=== PATIENT | female | born 1960 | race Caucasian/White ===

== ENCOUNTER → 2020-06-07 11:44 | Outpatient (CLI) | payer OTHER, SELFPAY ==
[2020-06-07 13:18] LABS: Add Manual Diff / Slide Review NO; Basophils Absolute Auto 100 /uL (0-100); Basophils Percent Auto 1.2 % (0-2); Eosinophils Absolute Auto 100 /uL (0-450); Hematocrit 39.5 % (36-46); Hemoglobin 13.2 g/dL (12.0-16.0); Lymphocytes Absolute Auto 2400 /uL (1100-4500); Lymphocytes Percent Auto 44.6 % (25-40); Mean Corpuscular HGB Conc 33.5 % (30-36); Mean Corpuscular Hemoglobin 28.9 PG (26-34); Mean Corpuscular Volume 86.4 fL (80-100); Monocytes Absolute Auto 400 /uL (0-900); Monocytes Percent Auto 6.8 % (3-14); Neutrophils Absolute Auto 2400 /uL (1500-7000); Neutrophils Percent Auto 45.4 % (50-75); Platelet Count 358 X10^3/uL (150-400); Red Blood Cell Count 4.57 X10^6/uL (4.0-5.2); Red Cell Distribution Width 13.2 % (11.6-14.8); White Blood Cell Count 5.3 X10^3/uL (4.5-11.0)
[2020-06-08 01:12] LABS: BUN Creatinine Ratio 31.7 (6-22); Blood Urea Nitrogen 20 mg/dL (7-17); Calcium 10.4 mg/dL (8.4-10.2); Carbon Dioxide 28 mmol/L (22-32); Chloride 104 mmol/L (98-107); Estimated Glomerular Filt Rate > 60.0 mL/min (>60); Glucose 85 mg/dL (70-100); HEMOLYSIS < 15 (0-50); Potassium 4.8 mmol/L (3.4-5.1); Sodium 140 mmol/L (137-145)
[2020-06-08 02:09] LABS: Hemoglobin A1C% w Est Avg Glu 5.1 % (4.0-6.0)
== END ==
PROVIDERS: PCP Family Medicine; Referring Provider Orthopaedic Surgery Adult Reconstructive Orthopaedic Surgery; Visit Provider Orthopaedic Surgery Adult Reconstructive Orthopaedic Surgery
DX: Z01.818 Encounter for other preprocedural examination (principal); Z01.812 Encounter for preprocedural laboratory examination; R73.9 Hyperglycemia, unspecified
CPT/HCPCS: 36415; 80048; 83036; 85025; 93005

== ENCOUNTER → 2020-07-03 11:40 | Outpatient (CLI) | payer OTHER, SELFPAY ==
[2020-07-03 14:28] LABS: COVID19 -Nasal RAPID Negative (Negative)
== END ==
PROVIDERS: PCP Family Medicine; Visit Provider Student in an Organized Health Care Education/Training Program
DX: Z01.812 Encounter for preprocedural laboratory examination (principal); Z20.822 Contact with and (suspected) exposure to COVID-19
CPT/HCPCS: 87635

== ENCOUNTER 2020-07-05 09:10 | Inpatient (IN) | payer OTHER, SELFPAY ==
[2020-06-28 09:52] VITALS: BMI 30.8
[2020-07-05] VITALS (16 sets, daily range): BP systolic 96–122; BP diastolic 52–72; PULSE 54–92; RESP 10–18; TEMP 36–36.7; O2SAT 93–100; BMI 32.4
--- NOTE | 2020-07-05 | DI.RAD.S_ITS ---
PROCEDURE: XR HIP RT 1V INDICATIONS: RIGHT ANTERIOR HIP TECHNIQUE: 1 intraoperative view(s) of the hip acquired. COMPARISON: [facility], CR, XR PELVIS 1-2V, 07/05/2020, 14:22. FINDINGS: Patient is status post right hip arthroplasty, with hardware components in expected positions. The hip joint appears congruent. The visualized bony structures appear intact. IMPRESSION: Expected intraoperative appearance of the right hip arthroplasty. Dictated by: Guzman Santana M.D. on 07/05/2020 at 14:56 Approved by: Guzman Santana M.D. on 07/05/2020 at 14:57
--- NOTE | 2020-07-05 09:26 | DI.RAD.S_ITS ---
PROCEDURE: XR PELVIS 1-2V INDICATIONS: anterior NAHID TECHNIQUE: 1 view of the lower pelvis acquired. COMPARISON: [facility] [place], CR, XR PELVIS WITH LATERAL HIP RIGHT, 04/11/2020, 15:42. FINDINGS: Bones: Patient is status post right hip arthroplasty, with hardware components in expected positions. The hip joint appears congruent. The visualized bony structures appear intact. Severe left hip joint narrowing redemonstrated. Soft tissues: Overlying postoperative changes are noted. No suspicious soft tissue densities. IMPRESSION: Expected immediate postoperative appearance of right hip arthroplasty. Dictated by: Hans Santos [facility] Interpreted: Ginna Sauer MD on 07/05/2020 at 14:33 Transcribed by: JOB on 07/05/2020 at 14:35 Approved by: Ginna Sauer M.D. on 07/05/2020 at 17:12
[2020-07-05] MEDS: LACTATED RINGERS 1,000 ML 42 ML IV ×2 (10:05→14:24)
[2020-07-05] MEDS: ACETAMINOPHEN 325 MG TABLET 975 MG PO (10:08)
[2020-07-05] MEDS: CELECOXIB 200 MG CAPSULE PO (10:09)
--- NOTE | 2020-07-05 10:10 | SUR.PREOP ---
Right anterior hip cleansed with 2% chlorhexadine wipes.
--- NOTE | 2020-07-05 11:03 | PM.PREOP ---
Pre-operative Note COVID-19 COVID-19 status: Negative Result date/Date tested (Pos, Neg/Pending): 07/03/20 Interval Note History & Physical reviewed/Exam performed by Physician: Yes Changes to H&P: No H&P completed within 30 days and has changed as indicated here:: Plan for right anterior NAHID
[2020-07-05] MEDS: CEFAZOLIN 2 GM/100 ML FROZ.PIGGY IV ×2 (11:42→20:10)
[2020-07-05] MEDS: TRANEXAMIC ACID 1,000 MG VIAL 2000 MG INJ ×2 (11:55→13:30)
[2020-07-05] MEDS: ROPIVACAINE 0.5% PF 5 MG/ML 20ML VIAL 60 ML INJ (12:24)
[2020-07-05] MEDS: SODIUM CHLORIDE IRRIG SOLUTION 250 ML, POVIDONE-IODINE SPONGE STICKS 1 APPLIC IRR (12:24)
[2020-07-05] MEDS: MORPHINE 4 MG/ML INJ INJ (12:25)
[2020-07-05] MEDS: KETOROLAC 30 MG/ML VIAL IV (12:25)
--- NOTE | 2020-07-05 14:07 | P.OP_ITS ---
Operative Date/Time/Diagnoses Date of procedure: 07/05/20 Time of procedure: 14:07 Pre-op diagnosis: right hip OA Post-op diagnosis: same Procedure & Clinicians Procedure: right anterior NAHID Same procedure as scheduled: Yes Indications: Right hip osteoarthritis resistant to further conservative measures Surgeon: Miguel Angel Marcum [employer] Official: Chaitanya Lang Anesthesia Type: General and Spinal Operative Notes Findings: Right hip osteoarthritis with head neck junction osteophytes and [id number] articulation of the weight-bearing portion of the femoral head Closure Type: primary Specimen(s): none sent Prosthetic devices, grafts, tissues, transplants, or devices: Yeh and Nephew 54 mm R3 three-hole cup 1x 25mm screw 2x 15mm screws 54 mm x 36 mm ceramic liner Anthology size 6 high offset femoral component 36+ 0 delta Biolox head Estimated Blood Loss (mL): 500 Procedure in detail: Patient was met in the preoperative holding area where the site and side of surgery were marked by . Informed consent had been reviewed and signed in clinic was also reviewed the preoperative holding area. All last minute questions were answered. Patient was then brought back in the operating room she received a spinal anesthetic she was then placed supine and transferred onto the [place] table. She was induced under general anesthesia. Both feet were well padded and placed in [place] table boots. The right lower extremity then prepped and draped in normal sterile fashion. A surgical time-out was performed verifying site and side of surgery as well as the name of the patient. Incision the skin was made with and 10 blade starting approximately 2 cm distal and 1 cm lateral to the ASIS aiming towards the fibular head. Electrocautery dissection was carried down to the level of tensor fascia. The tensor fascia was then incised. A Meyerding retractor was then placed over the lateral aspect of the rectus and retracted medially and a Cobra was placed over the superior aspect of the femoral neck to retract the tensor laterally. This gave us good exposure to the ascending branch the femoral circumflex vessels these were coagulated using electrocautery. A 2nd Cobra retractor was then placed over the inferior aspect of the femoral neck a bent Hohmann was placed over the anterior aspect of the acetabulum to give us exposure to the capsule. . Capsular fat was removed and inverted T-shaped capsulotomy was performed. The superior and inferior leaflets were tagged with a FiberWire suture in retractors were placed intracapsularly and then made a femoral neck cut with a reciprocating saw based off for preoperative template. A corkscrew was then used to remove the femoral head. The soft tissue sleeve was then introduced and the retractors were placed. The pulvinar was then removed using electrocautery and suction and began reaming with a 42 mm Reamer to medialized. Fluoroscopic imaging was then brought in and began upsizing by reamers by 2. Ending with a 52 mm Reamer at which point I start to get good fit and fill I then selected the 53 mm Reamer reamed this and selected a 54 mm cup. This was inserted on the straight handle director of parks and recreation initial attempts at placement of the cup resulted in the cup not fully seating. The cup was then removed then touch reamed the rim again with the 53 mm Reamer and was able to fully seat the cup a 2nd time. Screws were then placed through the cup. And the ceramic liner was then impacted make sure that it was well seated. Next I turned my attention to the femoral side the femoral elevator hook was placed in the posterior aspect of the femur the foot was then externally rotated to 120? extended to the floor and dducted. Bent Hohmann was placed over the superior aspect of the superior leaflet of the capsulotomy and the capsule was further released off the inner shoulder of the greater trochanter. This was resulted in the soft spot with a large single prong retractors placed over the tip of the greater trochanter and the Meyerding retractor was then placed over the calcar. This gave us good exposure to a femoral neck cut. Began use with using a canal finer followed by a chili pepper broach followed by broaching from a size 1 point up by 1s. And with a size 5 calcar planed off this broach. Trialed with a high offset neck and a 36+ 0 head this had good stability to full external rotation as well as external rotation 90? and extension to the floor. Fluoroscopic imaging was brought in which showed that the operative side was long as well as the stem was undersized. The hip was then dislocated the components were removed and I was able to countersink a 5. Broach and calcar planed off this broach and ultimately upsized by 1 to a size 6 broach a size 6 high offset stem was then placed and the delta Biolox 36+ 0 head was then packed onto the trunnion and reduced a final time. Stability was tested to maximal external rotation which was stable as well as external rotation 90? and extension to the floor. Fluoroscopic imaging was brought in for final x-ray Betadine solution was then placed into the wound allowed to sit for several minutes prior to being lavage with copious normal saline.. Degree soft tissue injection was then performed followed by closure of the capsulotomy using a running Ethibond suture with removal of the tag sutures. The tensor fascia layer was then closed with a running 1. Vicryl followed by running 1. In the fat layer followed by interrupted 2 0 Vicryl in the subcutaneous layer followed by running 3-0 Stratafix Dermabond and Aquacel dressing. Complications: none Post-operative Condition: stable Disposition: PACU Plan for aftercare: WBAT RLE, 24 hours post-op abx, ASA 81mg BID for DVT prophylaxis
[2020-07-05] MEDS: ONDANSETRON 4 MG/2 ML INJ IV ×2 (14:32→21:10)
[2020-07-05] MEDS: OXYCODONE/ACETAMINOPHEN 5/325 TABLET 1 TAB PO (14:32)
--- NOTE | 2020-07-05 15:20 | PC.NURSE ---
1505 - Pt arrived to the floor, awake and alert, reports feeling nauseated. MOSHGIACH reports 1 percocet and zofran given at 1430. Drsg to anterior right hip CDI, SCD's in place. Oriented to room and routine, educated to safety and call light use. Call light in reach, bed alarm on. Report given to RN Masood and Ashley.
[2020-07-05] MEDS: LACTATED RINGERS 1,000 ML 125 ML IV (15:51)
[2020-07-05] MEDS: ONDANSETRON 4 MG ODT PO ×2 (15:52→20:35)
[2020-07-05] MEDS: ASPIRIN EC 81 MG TABLET PO (20:11)
[2020-07-05] MEDS: DOCUSATE 100 MG CAPSULE PO (20:11)
[2020-07-06 00:35] VITALS: BP 101/60; PULSE 67; RESP 16; TEMP 37.1; O2SAT 94
[2020-07-06] MEDS: LACTATED RINGERS 1,000 ML 125 ML IV (00:37)
[2020-07-06 04:00] VITALS: BP 101/57; PULSE 75; RESP 16; TEMP 36.8; O2SAT 94
[2020-07-06] MEDS: CEFAZOLIN 2 GM/100 ML FROZ.PIGGY IV (04:04)
[2020-07-06] MEDS: OXYCODONE IR 5 MG TABLET PO ×2 (04:04→20:30)
[2020-07-06] MEDS: IBUPROFEN 400 MG TABLET PO ×5 (04:04→20:03)
[2020-07-06 06:14] LABS: Hematocrit 29.3 % (36-46); Hemoglobin 9.9 g/dL (12.0-16.0)
[2020-07-06 07:26] VITALS: BP 103/58; PULSE 70; RESP 16; TEMP 36.4; O2SAT 96
--- NOTE | 2020-07-06 07:54 | PM.PNPO.1 ---
Subjective Subjective Date Patient Seen: 07/06/20 Time Patient Seen: 07:54 Interval history: Patient states she is doing well and is in minimal discomfort at rest. Patient reports good sensation throughout the bilateral lower extremities to light touch. At this time patient denies fever, chills, nausea, urinary retention, shortness of breath, or chest pain. Patient states she is looking forward to working with physical therapy further and ultimately being discharged home. Exam Vital Signs (past 8 hours): - 07/06/20 00:35 07/06/20 04:00 Temperature 98.8 F 98.3 F Pulse Rate 67 75 Respiratory Rate 16 16 Blood Pressure 101/60 101/57 L Pulse Oximetry 94 94 Oxygen Delivery Method Room Air Oxygen Flow Rate 0 Narrative Exam Narrative: 60-year-old female postop day 1 status post right total hip arthroplasty. Patient is resting comfortably in bed, is in no acute distress, is alert and oriented x3. Skin is warm and dry, and the skin surrounding the incision site is free of erythema, warmth, induration, or discharge. Good sensation appreciated throughout the bilateral lower extremities. Hip flexion performed bilaterally without difficulty or discomfort, left greater than right. Ankle inversion, eversion, plantar flexion, dorsiflexion performed bilaterally without difficulty or discomfort. Calves are soft and nontender, negative Homans sign. Capillary refill less than 2 seconds. No other signs of DVT appreciated. Dressing over the incision site is free of strike through. Resp Effort & Inspection: normal respiratory effort and able to speak in complete sentences Skin General: no rashes or lesions noted Objective Labs Result Diagrams: 07/06/20 05:46 Labs: Laboratory Results - last 24 hr 07/06/20 05:46 Hgb 9.9 L Hct 29.3 L PFSH Medical History Anxiety Low back pain Osteoarthritis Raynaud's disease Surgical History History of section [place] teeth removed Social History household members: spouse and children Smoking Status: Never smoker alcohol intake: current Assessment & Plan Post-op Postoperative Procedures: Procedures Operation Date: 07/05/20 11:15 Actual Procedures Side Surgeon p Total Hip Arthroplasty/Anterior Approach Right Miguel Angel Marcum MD Postoperative day: 1 Postoperative status: doing well Postoperative plan: ambulate Postoperative plan narrative: Patient to work further with physical therapy on ambulation. Patient needs to be free of nausea prior to discharge. Current pain control regimen is to be continued following discharge as it is adequately managing the patient's pain level. Time Spent With Patient Time with patient: 15-24 minutes
--- NOTE | 2020-07-06 09:14 | P.DS_ITS ---
History of Present Illness History of Present Illness Date Patient Seen: 07/06/20 Time Patient Seen: 09:14 Chief complaint: OPB Narrative: Preferred previous HPI Discharge Providers Provider Discharge Date: 07/06/20 Primary care physician: Jovanni Pena MD Consults: 07/05/20 09:26 Consult to Anesthesiology Routine Comment: Consulting Provider: Anesthesiologist Reason for consultation: Regional block for post operative pain control 07/05/20 15:45 Consult to Discharge Planning Routine Comment: Consult to Physical Therapy Evaluate & Treat Comment: Physician Instructions: post op NAHID protocol Consult to Respiratory Therapy Evaluate & Treat Comment: Physician Instructions: Evaluate and treat Discharge provider: Eric Bass PA-C Summary Hospital Course Discharge Diagnosis: Right hip osteoarthritis Status post right total hip arthroplasty Hospital Course: Patient was admitted to the hospital following the above-listed procedure for the above-listed diagnosis. Following the procedure the patient has been convalescing appropriately in her pain has been controlled with her current pain management regimen. Patient successfully worked with physical t herapy on ambulation and stair [place]. Throughout the course of the patient's stay she has denies fever, chills, shortness of breath, or chest pain. Episodes of nausea have been reported but appear to be under control at this moment. Status at Discharge Cognitive/behavioral status at discharge: oriented Functional status at discharge: uses cane/walker Overall status at discharge: patient is progressing back to baseline Exam Vital Signs (past 8 hours): - 07/06/20 04:00 Temperature 98.3 F Pulse Rate 75 Respiratory Rate 16 Blood Pressure 101/57 L Pulse Oximetry 94 Oxygen Delivery Method Room Air Oxygen Flow Rate 0 Narrative Exam Narrative: 60-year-old female postop day 1 status post right total hip arthroplasty. Patient is resting comfortably in bed, is in no acute distress, is alert and oriented x3. Skin is warm dry, and the skin surrounding the incision site is free of erythema, warmth, induration, or discharge. Hip flexion performed bilaterally without difficulty or discomfort, left greater than right. Ankle inversion, eversion, plantar flexion, dorsiflexion performed bilaterally without difficulty or discomfort. Calves are soft and nontender, negative Homans sign. Good sensation appreciated throughout the bilateral lower extremities to light touch. Palpable pulses appreciated, capillary refill less than 2 seconds. No other signs of DVT appreciated. Dressing over the incision site is free of stricture. Resp Effort & Inspection: normal respiratory effort and able to speak in complete sentences Skin General: no rashes or lesions noted Objective Labs Result Diagrams: 07/06/20 05:46 Labs: Laboratory Results - last 24 hr 07/06/20 05:46 Hgb 9.9 L Hct 29.3 L [facility] Medical History Anxiety Low back pain Osteoarthritis Raynaud's disease Surgical History History of section [place] teeth removed Social History household members: spouse and children Smoking Status: Never smoker alcohol intake: current Discharge Assessment & Plan Assessment and Plan Assessment: Patient is doing well. Plan of Treatment: Patient is to continue working with outpatient physical therapy following discharge from the hospital. First postoperative appointment is scheduled for 2 weeks following discharge. Dressing is to remain intact until the 1st postoperative visit in clinic. Patient is to continue current pain control regimen as it is currently managing the patient's pain effectively. Patient is to continue aspirin 81 mg twice daily for 6 weeks for DVT prophylaxis. Patient has been instructed to contact the clinic with any concerns or questions. Any signs of increased redness, swelling, warmth, or discharge around the incision site should be reported to the clinic. Anterior hip precautions. Discharge Plan Discharge Plan Patient Disposition: Home Provider Discharge Comment: Patient cleared for discharge pending PT approval and no episodes of nausea. Discharge orders & Medications Discharge Orders: Discharge (Order); Ordered 07/06/20 Ordered By: Eric Bass Prescriptions: New acetaminophen 325 mg Tablet 650 mg PO TID Qty: 90 RF: 0 aspirin 81 mg Tablet,Delayed Release (Dr/Ec) 81 mg PO BID Qty: 90 RF: 0 ibuprofen 400 mg Tablet 400 mg PO Q4HR Qty: 90 RF: 0 oxycodone 5 mg Tablet 10 mg PO Q3HR PRN (Reason: Pain, Severe (7-10)) Qty: 42 RF: 0 Continued ibuprofen 200 mg Capsule 800 mg PO BID-TID RF: 0 acetaminophen 500 mg Tablet 1,000 mg PO BID RF: 0 sertraline 50 mg Tablet 50 mg PO DAILY RF: 0 Follow up/Referrals: Jovanni Pena MD [Primary Care Provider] - Diet/Activity/Treatments Diet: Diet as Tolerated Activity: Weight-bearing as tolerated. Anterior hip precautions. Skin/Wound/Dressing Care Report to your healthcare provider any signs of infection, such as:: chills, fever, night sweats, increased pain, unusual drainage and unusual redness Dressing: Dressing to remain dry and intact. Contact clinic if the dressing is to become damaged or removed. Other wound treatment: Refrain from placing topical ointments over the incision site. Visit Report/Discharge Packet Instructions: DI for Hip Replacement Stand Alone Forms: Surgery Discharge Discharge Data Primary Care Provider: Jovanni Pena Attending Provider: Miguel Angel Marcum
[2020-07-06] MEDS: ACETAMINOPHEN 325 MG TABLET 650 MG PO ×3 (09:54→20:03)
[2020-07-06] MEDS: ASPIRIN EC 81 MG TABLET PO ×2 (09:55→20:03)
[2020-07-06] MEDS: DOCUSATE 100 MG CAPSULE PO ×2 (09:55→20:03)
[2020-07-06] MEDS: SERTRALINE 50 MG TABLET PO (09:55)
--- NOTE | 2020-07-06 10:51 | PT.IIE ---
Current Diagnoses Unilateral primary osteoarthritis, right hip (07/06/20) Surgery Performed Operation Date: 07/05/20 11:15 Actual Procedures p Total Hip Arthroplasty/Anterior Approach(Right) - Miguel Angel Marcum MD Surgical History (Last Reviewed 07/06/20 @ 09:17 by Eric Bass PA-C) History of section [place] teeth removed Medical History (Last Reviewed 07/06/20 @ 09:17 by Eric Bass PA-C) Anxiety Low back pain Osteoarthritis Raynaud's disease Physical Therapy Inpatient Evaluation/Re-Eval M1 PT/OT-IP Prior Functional Status Start: 07/06/20 13:08 Freq: NEEDED Status: Active Protocol: Document 07/06/20 10:51 AB (Rec: 07/06/20 13:26 AB [id number]) Medical Review Prior Functional Status Medical History Reviewed Yes Communication able to make needs known Mobility and Gait pt stated that she is independent with all mobilities and ambulation without AD Social History Household Members spouse,children Living Arrangements House Number of Floors (Floors) Two Floors Number of Stairs To Enter/Railing? 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 M2 PT-IP Current Condition Start: 07/06/20 13:08 Freq: NEEDED Status: Active Protocol: Document 07/06/20 10:51 AB (Rec: 07/06/20 13:26 AB [id number]) Physical Therapy Current Condition Current Condition Evaluation Date 07/06/20 Treatment Diagnosis s/p R NAHID anterior approach; difficulty in walking Onset Date 07/05/20 Precautions Anterior Hip Precautions No Hip Extension,No Hip External Rotation Weight Bearing Status Weight Bearing Status Weight Bear as Tolerated Allowed Weight Bearing Amount (enter % RLE WBAT or #) (%) M3 PT-IP Subjective Start: 07/06/20 13:08 Freq: NEEDED Status: Active Protocol: Document 07/06/20 10:51 AB (Rec: 07/06/20 13:26 AB [id number]) Subjective Physical Therapy Visit Type Type Initial Evaluation Visit Start Time 10:51 Visit Stop Time 11:40 Total Visit Minutes 51 Number of WOOL SHEARER Visits 0 Physical Therapy Visit Comments Patient Comments pt is agreeable to do PT; stated that R upper thigh is still numb and that she has been nauseated Therapy Pain Assessment Pain When Pain Assessed At Rest Pain Present Pain Present Pain Reported Location right hip Intensity 3 Scale Used pain increases with mobility Pain Management Techniques Apply Cold,Distraction, Elevation,Modification of Treatment,Re-positioning, Timing of Activity with Medications M4 PT-IP Mobility and Gait Start: 07/06/20 13:08 Freq: NEEDED Status: Active Protocol: Document 07/06/20 10:51 AB (Rec: 07/06/20 13:26 AB [id number]) PT-Bed Mobility Assessment Supine to Sit Supine to Sit Standby Assistance PT-Transfer Assessment Sit to and From Stand Sit to and from Stand Moderate Assistance,1 Person Assistance,Use of Upper Extremities Equipment Transfer Assistive Device Gait Belt,Front Wheeled Walker Orthotic/Prosthetic Devices or Brace: No Transfers Transfer Destination Bedside Commode Transfer Technique Stand Step Pivot Transfer Ability Level of Assist Moderate Assistance,1 Person Assistance,Use of Upper Extremities Comments Mobility Comments educated pt on R hip anterior precautions. BP in supine 96/ 58. pt completed supine to sit SBA. pt was able to sit on EOB SBA. c/o lightheadedness and nausea. BP: 106/63. bedside commode positioned next to the bed. BP checked again prior to standin/69. pt completed sit to stand mod A and cues and completed step transfer using FWW mod A to bedside commode. BP checked again prior to standing up form the commode: 90/56. completed sit to stand mod A and pt ambulated to the chair mod A using FWW. c/o nausea, lightheadedness. elevated LE. BP checked: 94/49. pt rested on the chair. BP checked again after ~ 2 min of rest: 91/55. positioned pt on chair. call light and table placed within reach. informed regarding BP. Gait Assessment Gait Gait Assistance Required: Moderate Assistance,1 Person Assist Distance (Feet) 12 Able to Maintain Weight Bearing Status Yes During Gait Assistive Devices Assistive Device Gait Belt,Front Wheeled Walker Orthotic/Prosthetic Devices or Brace: No Gait Deviations General Gait Pattern Decreased Stride Length, Decreased Feet Clearance Factors Limiting Gait Function Factors Limiting Gait Function Decreased Activity Tolerance, Decreased Strength,Difficulty Following Directions,Pain,Poor Balance,Poor Safety Awareness Comments Gait Comments pls refer to mobility section for details PT-Balance Assessment Sitting Balance and Reactions Static Sitting Balance Ability Good Dynamic Sitting Balance Ability Good Standing Balance and Reactions Static Standing Balance Ability Fair Dynamic Standing Balance Ability Fair Device Used FWW M5 PT-IP Objective Assessments Start: 07/06/20 13:08 Freq: NEEDED Status: Active Protocol: Document 07/06/20 10:51 AB (Rec: 07/06/20 13:26 AB [id number]) Orientation Orientation/Cognition Level of Alertness Alert Orientation Name,Place,Situation Safety Awareness Decreased Safety Awareness Gross Range of Motion Lower Extremity ROM Assessment Within Functional Limits Strength Lower Extremity Strength Assessment Right Impaired Hip 3-/5 Knee 4-/5 Coordination Assessment Gross Coordination Gross Coordination WNL Sensation Assessment Sensation Sensation Description Numbness Comments Sensation Comments c/o R upper thigh numbness Muscle Tone Muscle Tone WNL Yes M6 PT-IP Treatment Start: 07/06/20 13:08 Freq: NEEDED Status: Active Protocol: Document 07/06/20 10:51 AB (Rec: 07/06/20 13:26 AB [id number]) Physical Therapy Treatment Exercises Exercises Heel Slides Education Education Provided Precautions,Weight Bearing Status,Post-Op Packet,Safety M7 PT-IP Assessment and Plan Start: 07/06/20 13:08 Freq: NEEDED Status: Active Protocol: Document 07/06/20 10:51 AB (Rec: 07/06/20 13:26 AB [id number]) PT Summary Assessment and Plan Potential Rehabilitation Potential Good Status of Condition at Evaluation Evolving Summary Impairments Pain,ROM,Strength,Balance, Coordination,Sensation,Tone, Cognition,Bed Mobility, Transfers,Gait,Activity Tolerance Assessment Summary pt requiring mod A with transfers and ambulation using FWW. pt was not able to tolerate much activity and c/o nausea and lightheadedness. BP monitored and is on the low side but has been fairly stable throughout the PT session. d/c plan depending on progress. pt plans to go home and spouse and daughter will be able to assist pt. pt also has to complete stair climbing training prior to d/c . pt stated that she has outpt PT set up. will continue to assess progress. Goals Bed Mobility Goal Independent Transfer Goal Standby Assistance,Front Wheeled Walker Gait Goal Standby Assistance,Front Wheel Walker Gait Distance 150 Other Goals up/down 2 steps using SPC/post /DEPUTY CLERK OF SUPERIOR COURT CGA up/down 6 steps L rail and 6 steps B rails SBA Days to Meet Goals 5 Frequency of Treatment Frequency Of Treatment Twice a Day Treatment Plan Physical Therapy Treatment Plan Bed Mobility Training,Transfer Training,Gait Training, Therapeutic Exercise,Balance Retraining,Post Op Education, Discharge Planning,Hot or Cold Pack,Neuromuscular Re-ed, Coordination Retraining,Manual Therapy Precautions Anterior Hip Precautions No Hip Extension,No Hip External Rotation Recommendations To Nursing Amount of Assist Needed 1 Person Assist Discharge Recommendations PT Discharge Recommendations Home with Assistance, Outpatient PT Transportation Needs at Discharge Private Vehicle
[2020-07-06 11:30] VITALS: BP 91/55; PULSE 72; RESP 16; TEMP 36.3; O2SAT 97
[2020-07-06] MEDS: ONDANSETRON 4 MG ODT PO (11:39)
--- NOTE | 2020-07-06 13:50 | PT.IPTN ---
Current Diagnoses Unilateral primary osteoarthritis, right hip (07/06/20) Surgery Performed Operation Date: 07/05/20 11:15 Actual Procedures p Total Hip Arthroplasty/Anterior Approach(Right) - Miguel Angel Marcum MD Physical Therapy Treatment Note M2 PT-IP Current Condition Start: 07/06/20 13:08 Freq: NEEDED Status: Active Protocol: Document 07/06/20 10:51 AB (Rec: 07/06/20 13:26 AB [id number]) Physical Therapy Current Condition Current Condition Evaluation Date 07/06/20 Treatment Diagnosis s/p R NAHID anterior approach; difficulty in walking Onset Date 07/05/20 Precautions Anterior Hip Precautions No Hip Extension,No Hip External Rotation Weight Bearing Status Weight Bearing Status Weight Bear as Tolerated Allowed Weight Bearing Amount (enter % RLE WBAT or #) (%) M3 PT-IP Subjective Start: 07/06/20 13:08 Freq: NEEDED Status: Active Protocol: Document 07/06/20 13:50 AB (Rec: 07/06/20 14:45 AB [id number]) Subjective Physical Therapy Visit Type Type Treatment Note Visit Start Time 13:50 Visit Stop Time 14:20 Total Visit Minutes 30 Number of PASSENGER BARGE MASTER Visits 0 Physical Therapy Visit Comments Patient Comments pt is agreeable to do PT Therapy Pain Assessment Pain When Pain Assessed At Rest Pain Present Pain Present Pain Reported Location right hip Scale Used pain scale not stated M4 PT-IP Mobility and Gait Start: 07/06/20 13:08 Freq: NEEDED Status: Active Protocol: Document 07/06/20 13:50 AB (Rec: 07/06/20 14:45 AB [id number]) PT-Bed Mobility Assessment Sit to Supine Sit to Supine Maximum Assistance,1 Person Assistance PT-Transfer Assessment Sit to and From Stand Sit to and from Stand Contact Guard Assistance,1 Person Assistance,Use of Upper Extremities Equipment Transfer Assistive Device Gait Belt,Front Wheeled Walker Orthotic/Prosthetic Devices or Brace: No Transfers Transfer Destination Bedside Commode Transfer Technique Stand Step Pivot Transfer Ability Level of Assist Contact Guard Assistance,1 Person Assistance,Use of Upper Extremities Comments Mobility Comments pt sitting reclined on chair. BP checked: 102/59. positioned pt sitting upright on chair. BP checked: 103/58. completed sit to stand CGA and stood up for ~ 1-2 min. BP checked in standin/53. required CGA for standing balance using FWW for support. instructed pt to sit back down. BP checked again after ~ 2-3 min of rest in seated position: 105/62. pt requested to use the toilet. bedside commode positioned next to pt. completed sit to stand CGA. BP checked again after a few min: 85/42. completed step transfer to bedside commode using FWW CGA and cues. c/o nausea. BP checked seated after transfer: 102/62. completed sit to stand from bedside commode CGA . NAC assisted pt with hygiene care. pt was able to take a few steps to get into the bed ~ 3 ft using FWW CGA. completed sit to supine max A with LE elevation to bed. BP in supine: 106/68. positioned pt in bed. call light and table placed within reach. informed nurse that pt is not ready to go home with decrease in BP with upright activity. Gait Assessment Gait Gait Assistance Required: Contact Guard Assist Distance (Feet) 3 Able to Maintain Weight Bearing Status Yes During Gait Assistive Devices Assistive Device Gait Belt,Front Wheeled Walker Orthotic/Prosthetic Devices or Brace: No Gait Deviations General Gait Pattern Decreased Stride Length, Decreased Feet Clearance Factors Limiting Gait Function Factors Limiting Gait Function Decreased Activity Tolerance, Decreased Sensation,Decreased Strength,Limited Range of Motion,Pain,Poor Balance,Poor Safety Awareness M5 PT-IP Objective Assessments Start: 07/06/20 13:08 Freq: NEEDED Status: Active Protocol: Document 07/06/20 10:51 AB (Rec: 07/06/20 13:26 AB [id number]) Orientation Orientation/Cognition Level of Alertness Alert Orientation Name,Place,Situation Safety Awareness Decreased Safety Awareness Gross Range of Motion Lower Extremity ROM Assessment Within Functional Limits Strength Lower Extremity Strength Assessment Right Impaired Hip 3-/5 Knee 4-/5 Coordination Assessment Gross Coordination Gross Coordination WNL Sensation Assessment Sensation Sensation Description Numbness Comments Sensation Comments c/o R upper thigh numbness Muscle Tone Muscle Tone WNL Yes M6 PT-IP Treatment Start: 07/06/20 13:08 Freq: NEEDED Status: Active Protocol: Document 07/06/20 13:50 AB (Rec: 07/06/20 14:45 AB [id number]) Physical Therapy Treatment Education Education Provided Precautions,Safety M7 PT-IP Assessment and Plan Start: 07/06/20 13:08 Freq: NEEDED Status: Active Protocol: Document 07/06/20 13:50 AB (Rec: 07/06/20 14:45 AB [id number]) PT Summary Assessment and Plan Potential Rehabilitation Potential Good Summary Impairments Pain,ROM,Strength,Balance, Coordination,Sensation,Tone, Cognition,Bed Mobility, Transfers,Gait,Activity Tolerance Progress Towards Goals Slow Progress due to Medical Issues,Slow Progress due to Activity Tolerance Assessment Summary pt continues to c/o nausea and with decrease in BP to 83-85/ 53-42 in standing position and did not tolerate much activity with PT today. pt needs to be able to tolerate more activity and ambulate more prior to d/c and also has 13 steps to get to bedroom level. will continue to assess progress. will conduct caregiver training when appropriate and stair climbing training. Goals Bed Mobility Goal Independent Transfer Goal Standby Assistance,Front Wheeled Walker Gait Goal Standby Assistance,Front Wheel Walker Gait Distance 150 Other Goals up/down 2 steps using SPC/post /SQL REPORT WRITER CGA up/down 6 steps L rail and 6 steps B rails SBA Days to Meet Goals 5 Frequency of Treatment Frequency Of Treatment Twice a Day Treatment Plan Physical Therapy Treatment Plan Bed Mobility Training,Transfer Training,Gait Training, Therapeutic Exercise,Balance Retraining,Post Op Education, Discharge Planning,Hot or Cold Pack,Neuromuscular Re-ed, Coordination Retraining,Manual Therapy Precautions Anterior Hip Precautions No Hip Extension,No Hip External Rotation Other Precautions WBAT RLE Recommendations To Nursing Amount of Assist Needed 1 Person Assist Discharge Recommendations PT Discharge Recommendations Home with Assistance, Outpatient PT Transportation Needs at Discharge Private Vehicle
--- NOTE | 2020-07-06 14:02 | CM.IDA ---
Initial DCP Assessment Note Pt is a 60 yo female, resident of [place], now POD#1 from right hip surgery w/ Dr Marcum PCP: Jovanni Pena Payer: [employer] Pref[employer] Reviewed chart, pt discussed in multidisciplinary rounds this morning, patient indp at baseline. Therapy has cleared pt for return home w/family to assist and pt has planned for home, DC order from Ortho has already been initiated this morning. No needs expected from DC planning team although will remain available in case this changes today. SASHA Benitez
--- NOTE | 2020-07-06 14:29 | PC.NURSE ---
Addendum entered by Citlaly Hardin R.N. 07/06/20 15:24: Patients discharged d/cd. She will be most likely going home tomorrow. BP stable at this time. Original Note: Patient attempted to get up with physical therapy and her blood pressured down to 80s/50s. She easily recovered and is back up to 100s/50s. She will not be going home today per PT. They need to work with her more. Given zofran for complaints of nausea, dressing to hip is cdi. She is napping now.
[2020-07-06 16:10] VITALS: BP 109/67; PULSE 64; RESP 18; TEMP 36.9; O2SAT 98
[2020-07-06 20:21] VITALS: BP 104/63; PULSE 64; RESP 18; TEMP 36.7; O2SAT 98
[2020-07-07 00:25] VITALS: BP 106/62; PULSE 66; RESP 16; TEMP 36.9; O2SAT 95
[2020-07-07] MEDS: IBUPROFEN 400 MG TABLET PO ×4 (01:14→13:23)
[2020-07-07] MEDS: OXYCODONE IR 5 MG TABLET PO ×3 (04:32→13:24)
[2020-07-07 04:40] VITALS: BP 104/60; PULSE 68; RESP 16; TEMP 36.7; O2SAT 97
[2020-07-07 07:28] VITALS: BP 108/61; PULSE 73; RESP 16; TEMP 36; O2SAT 98
--- NOTE | 2020-07-07 07:47 | P.PN_ITS ---
Subjective Subjective Date Patient Seen: 07/07/20 Time Patient Seen: 07:47 Interval history: Patient states she is doing well and is in minimal discomfort as she is resting in her chair. At this time the patient denies fever, chills, nausea, chest pain, shortness of breath, or urinary retention. Patient reports an episode of nausea that has since subsided. Patient states that she is looking for to discharge from the hospital later today. Exam Vital Signs (past 8 hours): - 07/07/20 00:25 07/07/20 04:40 07/07/20 07:28 Temperature 98.4 F 98.1 F 96.8 F L Pulse Rate 66 68 73 Respiratory Rate 16 16 16 Blood Pressure 106/62 104/60 108/61 Pulse Oximetry 95 97 98 Oxygen Delivery Method Room Air Oxygen Flow Rate 0 Narrative Exam Narrative: 60-year-old female postop day 2 status post right anterior total hip arthroplasty. Patient is resting comfortably in chair, is in no acute distress, is alert and oriented x3. Skin is warm dry, and the skin surrounding the incision site is free of erythema, warmth, induration, or discharge. Hip flexion performed bilaterally without difficulty or discomfort, left greater than right. Good sensation appreciated throughout the bilateral lower extremities light touch. Ankle inversion, eversion, dorsiflexion, plantar flexion performed bilaterally without difficulty or discomfort. Calves are soft and nontender, negative Homans sign. Palpable pulses appreciated, capillary refill less than 2 seconds. No other signs of DVT appreciated. Const General: cooperative, healthy appearing and comfortable Resp Effort & Inspection: normal respiratory effort and able to speak in complete sentences Skin General: no rashes or lesions noted Objective Labs Result Diagrams: 07/06/20 05:46 [facility] Medical History Anxiety Low back pain Osteoarthritis Raynaud's disease Surgical History History of section [place] teeth removed Social History household members: spouse and children Smoking Status: Never smoker alcohol intake: current Assessment & Plan Post-op Postoperative Procedures: Procedures Operation Date: 07/05/20 11:15 Actual Procedures Side Surgeon p Total Hip Arthroplasty/Anterior Approach Right Miguel Angel Marcum MD Postoperative day: 2 Postoperative status: doing well Postoperative plan: ambulate Postoperative plan narrative: Patient is to continue working on ambulation and stair [place] with physical therapy. Patient is to continue current pain control regimen as it is currently managing the patient's pain level effectively. Discharge likely occurring later today. Time Spent With Patient Time with patient: 15-24 minutes
[2020-07-07] MEDS: ASPIRIN EC 81 MG TABLET PO (09:10)
[2020-07-07] MEDS: ACETAMINOPHEN 325 MG TABLET 650 MG PO (09:10)
[2020-07-07] MEDS: DOCUSATE 100 MG CAPSULE PO (09:10)
[2020-07-07] MEDS: SODIUM CHLORIDE 0.9% FLUSH 10 ML IV (09:11)
[2020-07-07] MEDS: SERTRALINE 50 MG TABLET PO (09:11)
[2020-07-07] MEDS: ONDANSETRON 4 MG ODT PO ×2 (09:12→13:24)
[2020-07-07 10:00] VITALS: BP 114/67; PULSE 91; RESP 18; TEMP 36.3; O2SAT 97
--- NOTE | 2020-07-07 10:17 | PC.NURSE ---
Patient up to chair for breakfast. A/O x 4, 98% on RA, denies SOB, left lower lobe fine crackles, patient encouraged to use IS. R Hip dsg is CDI, minimal bruising noted on lateral hip, patient reports numbness still between groin and surgical site. Denies tingling or decreased sensation distal to dsg, pulses equal, no edema noted. Patient reports pain 2/10 at rest, 4/10 with movement and nausea. Oxy 5mg, Zofran 4mg PO given. Patient voiding in restroom, reports BM this AM. Call light in reach, will continue to monitor
--- NOTE | 2020-07-07 10:31 | PT.IPTN ---
Current Diagnoses Unilateral primary osteoarthritis, right hip (07/06/20) Surgery Performed Operation Date: 07/05/20 11:15 Actual Procedures p Total Hip Arthroplasty/Anterior Approach(Right) - Miguel Angel Marcum MD Physical Therapy Treatment Note M2 PT-IP Current Condition Start: 07/06/20 13:08 Freq: NEEDED Status: Active Protocol: Document 07/06/20 10:51 AB (Rec: 07/06/20 13:26 AB [id number]) Physical Therapy Current Condition Current Condition Evaluation Date 07/06/20 Treatment Diagnosis s/p R NAHID anterior approach; difficulty in walking Onset Date 07/05/20 Precautions Anterior Hip Precautions No Hip Extension,No Hip External Rotation Weight Bearing Status Weight Bearing Status Weight Bear as Tolerated Allowed Weight Bearing Amount (enter % RLE WBAT or #) (%) M3 PT-IP Subjective Start: 07/06/20 13:08 Freq: NEEDED Status: Active Protocol: Document 07/07/20 09:45 CLB (Rec: 07/07/20 11:12 CLB [id number]) Subjective Physical Therapy Visit Type Type Treatment Note Visit Start Time 09:45 Visit Stop Time 10:31 Total Visit Minutes 46 Number of INSIDE SALES TRAINER Visits 1 Physical Therapy Visit Comments Patient Comments pt is agreeable to do PT Therapy Pain Assessment Pain When Pain Assessed During Mobility Pain Present Pain Present Pain Reported Location right hip Intensity 3 Pain Management Techniques Modification of Treatment, Timing of Activity with Medications M4 PT-IP Mobility and Gait Start: 07/06/20 13:08 Freq: NEEDED Status: Active Protocol: Document 07/07/20 09:45 CLB (Rec: 07/07/20 11:12 CLB [id number]) PT-Bed Mobility Assessment Supine to Sit Supine to Sit Standby Assistance Sit to Supine Sit to Supine Standby Assistance PT-Transfer Assessment Sit to and From Stand Sit to and from Stand Standby Assistance,Use of Upper Extremities Equipment Transfer Assistive Device Gait Belt,Front Wheeled Walker Orthotic/Prosthetic Devices or Brace: No Transfers Transfer Destination Bed,Chair,Toilet Transfer Technique Stand Step Pivot Transfer Ability Level of Assist Standby Assistance Comments Mobility Comments Pt in chair BP 100/66, BP in standing 100/69, pt ambulated to BR and BP was taken after hand washing, BP in standing after activity 114/67. Pt denied dizziness or nausea. Pt then ambulated in avelar w/FWW/ SBA and climbed stairs w/COLLET DRILLER and SBA using rails. Pt then ambulated back to room getting in bed SBA and performing ther ex. Pt then exited bed and ambulated back to the bathroom then returned to chair. Pt left in reclined chair with all needs within reach, RN informed of pt mobility. Gait Assessment Gait Gait Assistance Required: Standby Assistance Distance (Feet) 200 Able to Maintain Weight Bearing Status Yes During Gait Assistive Devices Assistive Device Gait Belt,Front Wheeled Walker Orthotic/Prosthetic Devices or Brace: No Gait Deviations General Gait Pattern Decreased Stride Length, Decreased Feet Clearance Factors Limiting Gait Function Factors Limiting Gait Function Decreased Activity Tolerance, Decreased Sensation,Decreased Strength,Limited Range of Motion,Pain,Poor Balance Comments Gait Comments pls refer to mobility section for details Stair Climbing Assessment Evaluation Level of Assist On Stairs Standby Assistance,Contact Guard Assistance Devices Stair Climbing Assistive Devices Left Railing,Right Railing Technique/Endurance Stair Climbing Direction Ascend and Descend Stair Climbing Technique Step to Step Number of Steps Climbed 3 Stair Climbing Set # Repetitions (reps) 3 Comments Stair Climbing Comments Pt climbed stair with COLLET DRILLER then with left rail only. Pt also climbed using bilateral rails SBA. M5 PT-IP Objective Assessments Start: 07/06/20 13:08 Freq: NEEDED Status: Active Protocol: Document 07/06/20 10:51 AB (Rec: 07/06/20 13:26 AB [id number]) Orientation Orientation/Cognition Level of Alertness Alert Orientation Name,Place,Situation Safety Awareness Decreased Safety Awareness Gross Range of Motion Lower Extremity ROM Assessment Within Functional Limits Strength Lower Extremity Strength Assessment Right Impaired Hip 3-/5 Knee 4-/5 Coordination Assessment Gross Coordination Gross Coordination WNL Sensation Assessment Sensation Sensation Description Numbness Comments Sensation Comments c/o R upper thigh numbness Muscle Tone Muscle Tone WNL Yes M6 PT-IP Treatment Start: 07/06/20 13:08 Freq: NEEDED Status: Active Protocol: Document 07/07/20 09:45 CLB (Rec: 07/07/20 11:12 CLB [id number]) Physical Therapy Treatment Exercises Exercises Ankle Pumps,Gluteal Sets,Quad Sets,Heel Slides Education Education Provided Precautions,Safety M7 PT-IP Assessment and Plan Start: 07/06/20 13:08 Freq: NEEDED Status: Active Protocol: Document 07/07/20 09:45 CLB (Rec: 07/07/20 11:12 CLB [id number]) PT Summary Assessment and Plan Potential Rehabilitation Potential Good Summary Impairments Pain,ROM,Strength,Balance, Coordination,Sensation,Tone, Cognition,Bed Mobility, Transfers,Gait,Activity Tolerance Progress Towards Goals Progressing Toward Goals Assessment Summary Pt w/o nausea today during tx. Pt BP in sitting 100/66, standing 100/69 and after activity 114/67. Pt ambulated ~200ft w/FWW/SBA and was able to climb stairs. Pt requires SBA for bed mobility. Pt recalled hip precautions and demonstrated understanding during mobility. Pt seems able to d/c home with to assist. Goals Bed Mobility Goal Independent Transfer Goal Standby Assistance,Front Wheeled Walker Gait Goal Standby Assistance,Front Wheel Walker Gait Distance 150 Other Goals up/down 2 steps using SPC/post /COLLET DRILLER CGA up/down 6 steps L rail and 6 steps B rails SBA Days to Meet Goals 5 Frequency of Treatment Frequency Of Treatment Twice a Day Treatment Plan Physical Therapy Treatment Plan Bed Mobility Training,Transfer Training,Gait Training, Therapeutic Exercise,Balance Retraining,Post Op Education, Discharge Planning,Hot or Cold Pack,Neuromuscular Re-ed, Coordination Retraining,Manual Therapy Precautions Anterior Hip Precautions No Hip Extension,No Hip External Rotation Other Precautions WBAT RLE Recommendations To Nursing Amount of Assist Needed 1 Person Assist Discharge Recommendations PT Discharge Recommendations Home with Assistance, Outpatient PT Transportation Needs at Discharge Private Vehicle
--- NOTE | 2020-07-07 13:26 | PC.NURSE ---
Patient given discharge instructions regarding medication, f/u appointment, activity and s/s of infection. Patient and verbalized understanding. Prescriptions given to patient, IV removed, patient tolerated. Patient still feeling a little nauseas PRN zofran PO administered. Patient dressed and discharged via wheelchair.
== END 2020-07-07 13:40 | disposition home or self-care (01) | DRG 470 ==
LOC: OR 09:10 → AC 09:11
PROVIDERS: Admitting Provider Orthopaedic Surgery Adult Reconstructive Orthopaedic Surgery; PCP Family Medicine; Referring Provider Orthopaedic Surgery Adult Reconstructive Orthopaedic Surgery; Visit Provider Orthopaedic Surgery Adult Reconstructive Orthopaedic Surgery
PROC: 0SR904A Replacement of Right Hip Joint with Ceramic on Polyethylene Synthetic Substitute, Uncemented, Open Approach (ICD-10-PCS; CPT 27130; principal; 2020-07-05 11:15)
DX: M16.11 Unilateral primary osteoarthritis, right hip (principal); I95.9 Hypotension, unspecified; R11.0 Nausea; M25.751 Osteophyte, right hip; F32.9 Major depressive disorder, single episode, unspecified
CPT/HCPCS: 36415; 72170; 73501; 76000; 85014; 85018; 97110; 97116; 97162; 97530; C1776; J0690; J1100; J1885; J2250; J2270; J2274; J2405; J2704; J3010